=== PATIENT | male | born 1965 | race African-American/Black ===

== ENCOUNTER → 2023-07-30 | Outpatient (CLI) | payer OTHER ==
[2023-07-30 17:46] LABS: Blood Urea Nitrogen 12.1 mg/dL (9.0-27.0)
== END | disposition home or self-care (01) ==
LOC: LABWHC1 12:52
PROVIDERS: ATTEND Urology
DX: R31.0 Gross hematuria (principal)
CPT/HCPCS: 36415; 82565; 84520

== ENCOUNTER → 2023-08-02 | Outpatient (CLI) | payer OTHER ==
--- NOTE | 2023-08-02 10:28 | CT ---
EXAMINATION TYPE: CT abdomen pelvis wo/w con DATE OF EXAM: 08/02/2023 COMPARISON: NONE HISTORY: 58-year-old male R31.0 gross hematuria TECHNIQUE: Contiguous axial scanning of the abdomen and pelvis before and after administration of 100 ml Isovue 300 IV contrast. Delayed images through the kidneys and coronal/sagittal reconstructions performed. CT DLP: 3166.9 mGycm Automated exposure control for dose reduction was used. FINDINGS: The heart is normal size without pericardial effusion. Strandy/hazy atelectasis in the lower lungs. N o pleural effusion. Hepatomegaly at 20.5 cm. No focal lesion seen. Portal venous system is patent. No biliary ductal dila tation. Gallbladder, right adrenal gland, spleen, and pancreas within normal limits. No nephrolithiasis or hydronephrosis. There is symmetric uptake and excretion of contrast from both k idneys. Some mild perinephric stranding could be senescent change or could reflect underlying chronic kidney disease. No dilated small bowel, free fluid, or free air. Mild to moderate atherosclerotic plaque infrarenal a bdominal aorta. Circumaortic left renal vein incidentally noted. Normal appendix. Mild stool burden. No pericolonic inflammatory change. Mild circumferential wall thi ckening distal sigmoid and rectum likely due to nondistention. Bladder is nondistended but shows moderate circumferential thickening. There is a 2.8 cm rounded mas s along the left bladder base. The adjacent prostate gland is enlarged at 5.3 cm wide. No abnormal fl uid collection the pelvis or pelvic lymphadenopathy. Bones: [facility] visualized lower thoracic spine. Moderate spondylotic change visualized lumbar spine. Mil d degenerative change of the hips. Degenerative bony ankylosis SI joints. IMPRESSION: 1. A 2.8 CM ROUNDED MASS AT THE LEFT BLADDER BASE COULD REPRESENT A UROTHELIAL NEOPLASM OR A MASS FRO M THE PROSTATE GLAND EXTENDING INTO THE BLADDER LUMEN. CORRELATE WITH URINE CYTOLOGY AND DIRECT VISUA LIZATION. 2. NO SUSPICIOUS LYMPHADENOPATHY TO SUGGEST METASTATIC DISEASE AT THIS TIME. NO NEPHROLITHIASIS OR HY DRONEPHROSIS.
== END | disposition home or self-care (01) ==
LOC: RADCTMAIN 09:00
PROVIDERS: ATTEND Urology
DX: N32.89 Other specified disorders of bladder (principal); R31.0 Gross hematuria
CPT/HCPCS: 74178; Q9967

== ENCOUNTER 2023-08-12 12:05 | Day surgery (SDC) | payer OTHER ==
[2023-08-09 14:19] VITALS: BMI 29.0
--- NOTE | 2023-08-11 07:15 | P.GSHP ---
History of Present Illness H&P Date: 08/11/23 Chief Complaint: Gross hematuria The patient is a 58-year-old black male who underwent a TURP in 2017. He presents with a 6-week history of intermittent gross painless hematuria. He was treated empirically with Levaquin, but the hematuria persisted. CT scan showed normal upper tracts, but a 2.8 cm bladder mass was identified. Cystoscopy confirmed the presence of this mass, though it is questionable whether it arises from the bladder neck or the prostate. - Genitourinary (Male) Genitourinary: Reports hematuria, Denies dysuria, Denies flank pain Past Medical History Past Medical History: Diabetes Mellitus, Prostate Disorder Additional Past Medical History / Comment(s): "Increasing pressure at end of urination the last wek or so." No Diabetes medications needed for 4 yrs. Hx enlarged prostate, had surgery. History of Any Multi-Drug Resistant Organisms: None Reported Past Surgical History: Back Surgery, Orthopedic Surgery, Prostate Surgery Additional Past Surgical History / Comment(s): Right elbow surgery. Past Anesthesia/Blood Transfusion Reactions: No Reported Reaction Additional Past Anesthesia/Blood Transfusion Reaction / Comment(s): Never had blood transfuison. Smoking Status: Current every day smoker - Past Family History Mother Family Medical History: No Reported History Medications and Allergies Home Medications Medication Instructions Recorded Confirmed Type No Known Home Medications 08/09/23 08/09/23 History Allergies Allergy/AdvReac Type Severity Reaction Status Date / Time No Known Allergies Allergy Verified 08/09/23 14:05 Surgical - Exam - General well developed, well nourished, no distress - Respiratory normal respiratory effort - Abdomen Abdomen: soft, non tender, no guarding, no rigid, no rebound - Genitourinary normal penis with no external lesions, testicles non-tender - Psychiatric oriented to time, oriented to person, oriented to place, speech is normal, memory intact Results - Imaging CT scan - abdomen: report reviewed, image reviewed Assessment and Plan (1) Neoplasm of unspecified behavior of bladder Status: Acute Code(s): D49.4 - NEOPLASM OF UNSPECIFIED BEHAVIOR OF BLADDER SNOMED Code(s): 782530771 Plan: Cystoscopy, transurethral resection of bladder tumor. The procedure has been reviewed in detail with the patient. He is aware of potential risks, which include anesthesia, persistent bleeding, infection, postoperative urinary retention, and bladder perforation.
[~2023-08-12 12:05] MED LIST: HYDROmorphone 0.5 MG/0.5 ML SYRINGE IVP PRN; LIDOCAINE 1% (10MG/ML) FOR IV START INTRADERMA PRN; droPERidol 5 MG/2 ML VIAL IVP ONE
[2023-08-12] MEDS: IV FLUID CONTINUATION 1,000 ML IV ONE (12:23)
[2023-08-12 12:28] VITALS: RESP 16; TEMP 98
[2023-08-12 12:43] LABS: Glucose,Whole Blood 161 mg/dL (70-110)
[2023-08-12 12:56] LABS: Anisocytosis Slight; Basophils % (A) 1 %; Eosinophils # (A) 0.2 k/uL (0-0.7); Eosinophils % (A) 3 %; HCT 45.6 % (39.0-53.0); Hypochromasia Slight; Lymphocytes % (A) 43 %; MCH 22.2 pg (25.0-35.0); MCHC 30.8 g/dL (31.0-37.0); MCV 72.3 fL (80.0-100.0); Mean Platelet Volume 9.4; Microcytosis Moderate; Monocytes # (A) 0.6 k/uL (0-1.0); Monocytes % (A) 9 %; Neutrophils # (A) 2.9 k/uL (1.3-7.7); Neutrophils % (A) 41 %; Platelet Count 227 k/uL (150-450)
[2023-08-12] MEDS: DEXAMETHASONE SOD PHOSPHATE 4 MG/ML 1 ML VIAL IV ONE (12:58)
[2023-08-12] MEDS: SCOPOLAMINE 1 MG/72 HR PATCH TRANSDERM ONE (12:58)
[2023-08-12] MEDS: ONDANSETRON 4 MG/2 ML VIAL IVP ONE (12:58)
[2023-08-12] MEDS: LACTATED RINGERS 1,000 ML IV SCH (12:59)
[2023-08-12 13:45] LABS: ALT 17 U/L (4-49); AST 15 U/L (17-59); African American GFR (CKD) 80 (>60 ml/min/1.73 sqM); Albumin 4.2 g/dL (3.5-5.0); Alkaline Phosphatase 81 U/L (38-126); Anion Gap 4 mmol/L; Blood Urea Nitrogen 21 mg/dL (9-20); Calcium 9.2 mg/dL (8.4-10.2); Carbon Dioxide 26 mmol/L (22-30); Chloride 109 mmol/L (98-107); Glucose 153 mg/dL (74-99); Non-African American GFR(CKD) 69 (>60 ml/min/1.73 sqM); Potassium 4.6 mmol/L (3.5-5.1); Sodium 139 mmol/L (137-145); Total Bilirubin 0.5 mg/dL (0.2-1.3); Total Protein 6.9 g/dL (6.3-8.2)
[2023-08-12] MEDS ORDERED: LIDOCAINE 1% INJ 10MG/ML (20 ML MDV) ONE (14:58)
[2023-08-12] MEDS ORDERED: ROCURONIUM 10 MG/ML (5 ML VIAL) IV ONE (14:58)
[2023-08-12] MEDS ORDERED: GLYCOPYRROLATE 0.2 MG/ML 2 ML VIAL ONE (14:58)
[2023-08-12] MEDS ORDERED: NEOSTIGMINE 1 MG/ML 10 ML VIAL ONE (14:58)
[2023-08-12] MEDS ORDERED: fentaNYL (PF) 50 MCG/ML 2 ML AMP ONE (14:58)
[2023-08-12] MEDS ORDERED: SUCCINYLCHOLINE CHLORIDE 200 MG/10 ML VIAL IV ONE (14:58)
[2023-08-12] MEDS ORDERED: MIDAZOLAM 2 MG/2 ML VIAL ONE (14:58)
[2023-08-12] MEDS ORDERED: PROPOFOL 10 MG/ML 20 ML VIAL IV ONE (14:58)
[2023-08-12] MEDS ORDERED: HYDROmorphone (PF) 1 MG/ML ONE (14:58)
[2023-08-12] MEDS: LACTATED RINGERS 1,000 ML IV ONE (16:34)
--- NOTE | 2023-08-12 16:51 | P.OP ---
Date of Procedure: 08/12/23 Preoperative Diagnosis: Bladder mass Postoperative Diagnosis: BPH with obstruction Procedure(s) Performed: Cystoscopy, bipolar transurethral resection of prostate (TURP) Anesthesia: TONYA Surgeon: John Hathaway Estimated Blood Loss (ml): 75 IV fluids (ml): 900 Pathology: other (Prostate chips) Condition: stable Disposition: PACU Indications for Procedure: The patient is a 58-year-old black male who underwent a TURP in 2017. He presents with a 6-week history of intermittent gross painless hematuria. He was treated empirically with Levaquin, but the hematuria persisted. CT scan showed normal upper tracts, but a 2.8 cm bladder mass was identified. Cystoscopy confirmed the presence of this mass, though it is questionable whether it arises from the bladder neck or the prostate. The urine culture was negative, as was urine cytology. Operative Findings: Extremely large intravesical median lobe contiguous with left lateral lobe. Description of Procedure: The patient was taken in the operating room and placed in the dorsolithotomy position. The external genitalia was prepped and draped sterilely. The 25- [place] ACMI resectoscope sheath was introduced into the bladder. The bladder was inspected. Both ureteral orifices were of normal anatomic location and configuration, and clear urine effluxed from both. No tumors or foreign bodies were seen. Examination of the prostate revealed an extremely large intravesical median lobe, somewhat contiguous with the left lateral lobe. Using the bipolar cutting loop, the median lobe was resected in its entirety. Next, the posterior two thirds of the left lateral lobe were resected down to the surgical capsule. The floor of the prostate was then resected, proximal to the verumontanum. Excellent hemostasis was attained, and the decision was made not to resect the right lateral lobe as the median lobe was obviously the source of hematuria. The resectoscope was withdrawn into the bulbous urethra. The external urinary sphincter remained intact. The prostatic fossa was open. The NerissaConferensum evacuator was used to remove all prostate chips from the bladder. These were saved and sent for pathologic examination. The resectoscope was removed, and an 18 [place] Norris catheter was placed. The return was essentially clear. The patient tolerated the procedure well was taken to the recovery room in stable condition.
[2023-08-12 17:16] LABS: Glucose,Whole Blood 173 mg/dL (70-110)
[2023-08-12 18:08] VITALS: BP 158/92; PULSE 60
== END 2023-08-12 18:35 | disposition home or self-care (01) ==
LOC: OR 12:05
PROVIDERS: ATTEND Urology
DX: C67.9 Malignant neoplasm of bladder, unspecified (principal); N40.1 Benign prostatic hyperplasia with lower urinary tract symptoms; N13.8 Other obstructive and reflux uropathy; E11.9 Type 2 diabetes mellitus without complications; F17.200 Nicotine dependence, unspecified, uncomplicated; Z79.899 Other long term (current) drug therapy; Z79.84 Long term (current) use of oral hypoglycemic drugs
CPT/HCPCS: 52601; 88305; 80053; 85025; J2250; J0330; J1100; J2710; J0690; J2405; J2001; J3010; J1170; J2704